=== PATIENT | male | born 1985 | race African-American/Black ===

== ENCOUNTER 2021-03-14 06:53 | Emergency (ER) | payer OTHER, SELFPAY ==
[2021-03-14 07:14] LABS: Hemoglobin 13.7 g/dL (14.0-18.0); Mean Corpuscular HGB CONC 34.8 g/dL (32.0-36.0); Mean Corpuscular Hemoglobin 36.2 pg (27.0-31.0); Mean Platelet Volume 6.7 fL (7.4-10.4); Platelet Count 308 thou/uL (130-400); RBC Distribution Width 11.3 % (11.5-14.5); Red Blood Cell (RBC) Count 3.78 mill/uL (4.70-6.10); White Blood Cell (WBC) Count 20.3 thou/uL (4.8-10.8)
[2021-03-14] MEDS ORDERED: Fentanyl 100 MCG/2 ML VIAL ONE ×2 (07:19→09:05)
[2021-03-14] MEDS ORDERED: Boostrix 0.5 ML (Tdap) VIAL ONE (07:19)
[2021-03-14 07:36] LABS: ALT (SGPT) 42 U/L (8-55); AST (SGOT) 53 U/L (5-34); Albumin 4.1 g/dL (3.5-5.0); Alkaline Phosphatase 80 U/L (40-110); Anion Gap 12 mmol/L (10-20); BUN (Urea Nitrogen) 20 mg/dL (8.9-20.6); Bilirubin, Total 0.4 mg/dL (0.2-1.2); Calc. Creatinine Clearance 0 mL/min (70-130); Calcium 8.9 mg/dL (7.8-10.44); Carbon Dioxide 25 mmol/L (22-29); Chloride 106 mmol/L (98-107); Glucose 167 mg/dL (70-105); Lipase 26 U/L (8-78); Protein, Total 7.1 g/dL (6.0-8.3); Sodium 139 mmol/L (136-145)
[2021-03-14 07:38] LABS: Band 11 % (5-11); Eosinophils 2 % (0-10); Lymphocytes 20 % (21-51); MDiff Complete? YES; Macrocytosis SLIGHT = 6-15 cells (100X) (0-5/hpf); Monocytes 5 % (0-10); Neutrophil 61 % (42-75); Platelet Morphology Comment Appears Adequate; Reactive Lymphocytes 1 % (0-10)
[2021-03-14] MEDS ORDERED: Ketamine 50 MG/ML (10ML VIAL) ONE (08:26)
[2021-03-14] MEDS ORDERED: Iopamidol 370 76% 100 ML VIAL ONE (08:59)
== END 2021-03-14 09:24 | disposition short-term general hospital (02) ==
LOC: EDBD 06:53 → ERS 06:53
DX: S02.32XA Fracture of orbital floor, left side, initial encounter for closed fracture (principal); S72.401B Unspecified fracture of lower end of right femur, initial encounter for open fracture type I or II; S82.041B Displaced comminuted fracture of right patella, initial encounter for open fracture type I or II; S72.301B Unspecified fracture of shaft of right femur, initial encounter for open fracture type I or II; S22.039A Unspecified fracture of third thoracic vertebra, initial encounter for closed fracture; S22.049A Unspecified fracture of fourth thoracic vertebra, initial encounter for closed fracture; S22.059A Unspecified fracture of T5-T6 vertebra, initial encounter for closed fracture; V49.9XXA Car occupant (driver) (passenger) injured in unspecified traffic accident, initial encounter
CPT/HCPCS: 36415; 70450; 70486; 70498; 71260; 72125; 74177; 80053; 83605; 83690; 85025; 90471; 90715; 96365; 96375; 96376; G0390; J0690; J3010; Q9967